=== PATIENT | male | born 1980 | race Caucasian/White ===

== ENCOUNTER 2017-05-22 12:00 | Outpatient (CLI) | payer OTHER ==
[~2017-05-22] VITALS: Ht 185.4 cm; Wt 99.8 kg
[~2017-05-22 12:00] MED LIST: DIPH25TA82 PO; PRD10T PO; PRD20T PO; PRD50T PO; SULF1TAB34 PO
== END 2017-05-22 12:10 ==
LOC: PREOP 12:00
PROVIDERS: ATTEND Otolaryngology Otolaryngology/Facial Plastic Surgery
DX: Z01.818 Encounter for other preprocedural examination (principal); H93.8X2 Other specified disorders of left ear

== ENCOUNTER 2017-05-28 06:56 | Day surgery (SDC) | payer OTHER ==
[~2017-05-28] VITALS: Ht 185.4 cm; Wt 99.8 kg
[2017-05-28] MEDS ORDERED: LACTATED RINGERS 1,000 ML IV PRN (07:03)
[2017-05-28 07:25] VITALS: BP 112/70
[2017-05-28 07:35] LABS: BASOPHILS % (AUTO) 0 % (0-10); EOSINOPHILS # (AUTO) 0.4 10^3/uL (0.0-0.3); EOSINOPHILS % (AUTO) 4 % (0-10); HEMATOCRIT 44 % (40-54); HEMOGLOBIN 15.4 G/DL (13.3-17.7); LYMPHOCYTES # (AUTO) 1.6 X 10^3 (1.0-4.0); LYMPHOCYTES % (AUTO) 17 % (12-44); MEAN CORPUSCULAR HEMOGLOBIN 32 PG (25-34); MEAN CORPUSCULAR HGB CONC 35 G/DL (32-36); MEAN CORPUSCULAR VOLUME 90 FL (80-99); MEAN PLATELET VOLUME 10.3 FL (7.4-10.4); MONOCYTES # (AUTO) 0.7 X 10^3 (0.0-1.0); MONOCYTES % (AUTO) 8 % (0-12); NEUTROPHILS # (AUTO) 6.6 X 10^3 (1.8-7.8); NEUTROPHILS % (AUTO) 71 % (42-75); PLATELET COUNT 230 10^3/uL (130-400); RED BLOOD COUNT 4.83 10^6/uL (4.35-5.85); RED CELL DISTRIBUTION WIDTH 12.7 % (10.0-14.5); WHITE BLOOD COUNT 9.3 10^3/uL (4.3-11.0)
[2017-05-28 07:49] LABS: BUN/CREATININE RATIO 18; CALCIUM 8.8 MG/DL (8.5-10.1); CARBON DIOXIDE 23 MMOL/L (21-32); CHLORIDE 109 MMOL/L (98-107); CREATININE SERUM 0.82 MG/DL (0.60-1.30); GFR ESTIMATED > 60; GLUCOSE 95 MG/DL (70-105); POTASSIUM 4.1 MMOL/L (3.6-5.0); SODIUM 139 MMOL/L (135-145)
--- NOTE | 2017-05-28 09:02 | Progress Note-Pre Operative ---
Pre-Operative Progress Note H&P Reviewed The H&P was reviewed, patient examined and no changes noted. Date Seen by Provider: May 28, 2017 Time Seen by Provider: 08:45 Date H&P Reviewed: May 28, 2017 Time H&P Reviewed: 08:45 Pre-Operative Diagnosis: Left Auricular Cyst DEVI COSME MD May 28, 2017 9:02 am
[2017-05-28] MEDS ORDERED: proPOfol 200 MG/20 ML (DIPRIVAN) VIAL IV ONE (09:09)
[2017-05-28] MEDS ORDERED: LIDOCAINE PF 2% 5 ML (XYLOCAINE) VIAL ONE (09:09)
[2017-05-28] MEDS ORDERED: fentaNYL INJECTION 100 MCG/2 ML AMP ONE (09:11)
[2017-05-28] MEDS ORDERED: MIDAZOLAM 2 MG/2 ML (VERSED) VIAL ONE (09:12)
[2017-05-28] MEDS ORDERED: NEOMY/POLYM/HC (CORTISPORIN) 10 ML BTL ONE (09:14)
[2017-05-28] MEDS ORDERED: MUPIROCIN 2% OINT 22 GM (BACTROBAN) TUBE ONE (09:14)
[2017-05-28] MEDS ORDERED: LIDOCAINE/EPI 1%-1:200,000 (XYLOCAINE) 10 ML VIAL ONE (09:14)
[2017-05-28] MEDS ORDERED: ONDANSETRON 4 MG/2 ML (SDV) Z0FRAN ONE (09:43)
[2017-05-28] MEDS ORDERED: DEXAMETHASONE 10 MG/ML (DECADRON) 1 ML VIAL ONE (09:43)
[2017-05-28] MEDS ORDERED: SEVOFLURANE (ULTANE) 15 ML INHAL SOLN ONE (09:43)
--- NOTE | 2017-05-28 10:02 | Progress Note-Post Operative ---
Post-Operative Progess Note Surgeon (s)/[employer] Operator (s) Surgeon DEVI COSME MD Railway [employer] Operator n/a Pre-Operative Diagnosis Left Auricular Cyst Post-Operative Diagnosis same Post-Op Procedure Note Date of Procedure: May 28, 2017 Name of Procedure Performed: Excision of Left Auricular Cyst with INtermediate Repair Description & Findings Description and Findings: n/a Anesthesia Type get Estimated Blood Loss minimal Packing none. Specimen(s) collected/removed left aruicular mass/cyst DEVI COSME MD May 28, 2017 10:02 am
[2017-05-28] MEDS ORDERED: ACETAMINOPHEN 325 MG TABLET/CAPLET (TYLENOL) PO PRN (10:15)
[2017-05-28] MEDS ORDERED: HYDROcodone/APAP 5 MG/325 MG (LORTAB) TAB PO PRN (10:15)
[2017-05-28 11:00] VITALS: BP 117/80
[2017-05-28] MEDS ORDERED: HYDR-3062 PO (11:06)
[2017-05-28 11:30] VITALS: BP 108/60
[2017-05-28 11:55] VITALS: BP 108/60
--- NOTE | 2017-05-28 14:25 | Anesthesia-General Post-Op ---
General Patient Condition Mental Status/LOC: Same as Preop Cardiovascular: Satisfactory Nausea/Vomiting: Absent Respiratory: Satisfactory Pain: Controlled Complications: Absent Post Op Complications Complications None Follow Up Care/Instructions Patient Instructions None needed. Anesthesia/Patient Condition Patient Condition Patient is doing well, no complaints, stable vital signs, no apparent adverse anesthesia problems. No complications reported per nursing. JUMANA BOOTH CRNA May 28, 2017 14:25
== END 2017-05-28 11:55 | disposition home or self-care (01) ==
LOC: SDC 06:56
PROVIDERS: ATTEND Otolaryngology Otolaryngology/Facial Plastic Surgery
DX: L72.0 Epidermal cyst (principal)
CPT/HCPCS: 36415; 80048; 85025; 87081

== ENCOUNTER → 2018-12-28 | Outpatient (CLI) | payer OTHER ==
[~2018-12-28] MED LIST changes: +HYDR-3062 PO
--- NOTE | 2018-12-28 11:56 | Diagnostic Imaging Report ---
EXAMINATION: CHEST (PA AND LATERAL) CLINICAL INDICATION: 38-year-old male, cough. Hemoptysis. COMPARISON: None. FINDINGS: Heart size and mediastinal contours are unremarkable. There is no identified pneumothorax. There is no pleural effusion. There is no focal airspace consolidation. There are subcentimeter calcified granulomas bilaterally. IMPRESSION: No identified acute cardiopulmonary abnormality. Dictated by: Dictated on workstation # [id number]
--- NOTE | 2018-12-28 12:07 | Diagnostic Imaging Report ---
PROCEDURE: US Abdomen, limited. TECHNIQUE: Multiple realtime grayscale images were obtained over the left upper quadrant in various projections. INDICATION: 38-year-old male with left upper quadrant pain. COMPARISON: None available. FINDINGS: Spleen is normal in size measuring 11 cm in length. No focal splenic lesion or perisplenic fluid collection. No free fluid within the left upper quadrant. Left kidney is normal in size measuring 11 cm and there is no hydronephrosis or shadowing calculi. IMPRESSION: 1. No splenomegaly. 2. Normal left kidney. Dictated by: Dictated on workstation # [id number]
== END ==
LOC: RAD 11:09
PROVIDERS: ATTEND Nurse Practitioner Family
DX: R10.12 Left upper quadrant pain (principal); R04.2 Hemoptysis; R09.81 Nasal congestion
CPT/HCPCS: 71046; 76705

== ENCOUNTER 2019-01-12 05:56 | Outpatient (CLI) | payer OTHER ==
[~2019-01-12] VITALS: Ht 182.9 cm; Wt 96.8 kg
== END 2019-01-12 12:15 | disposition home or self-care (01) ==
LOC: PREOP 05:56
PROVIDERS: ATTEND Surgery
DX: Z01.818 Encounter for other preprocedural examination (principal)